=== PATIENT | male | born 1955 | race Caucasian/White ===

== ENCOUNTER 2016-10-28 10:55 | Day surgery (SDC) | payer BC ==
[~2016-10-28] VITALS: Ht 175.3 cm; Wt 136.0 kg
[~2016-10-28 10:55] MED LIST: ALLEGRA-D 24HR1 T24 PO; CIPRO 500MG TA500 MG PO; GLUCOPHAGE1000 MG PO; LEVAQUIN 5500 MG/TA1 PO; MASON NATURAL1200 MG PO; MEVACOR 20M20 MG/TAB PO; MUCINEX DM 30 M1 TE1; OMEGA-31 SGL PO; ONE DAILY1 TA1 PO; ONE-A-DAY MEN'S1 TAB PO; ZESTRIL 20MG TA20 MG PO
[2016-10-28 12:04] VITALS: BP 148/79; PULSE 79; TEMP 98
[2016-10-28] MEDS ORDERED: FLOMAX 0.40.4 MG/CAP PO (12:28)
[2016-10-28 14:13] VITALS: TEMP 97.2
[2016-10-28 14:25] VITALS: BP 122/75; PULSE 59
[2016-10-28 14:40] VITALS: BP 105/61; PULSE 56
[2016-10-28] MEDS ORDERED: NORCO 325 MG-51 TAB PO (14:54)
[2016-10-28 14:55] VITALS: BP 115/58; PULSE 70
[2016-10-28] MEDS ORDERED: SENOKOT S 50 MG1 TAB PO (14:55)
[2016-10-28] MEDS ORDERED: CIPRO 500MG TA500 MG PO (14:56)
[2016-10-28 15:00] VITALS: BP 109/69; PULSE 63
== END 2016-10-28 15:15 | disposition home or self-care (01) ==
LOC: SDCO 10:55
DX: N32.0 Bladder-neck obstruction (principal); E11.9 Type 2 diabetes mellitus without complications; E78.5 Hyperlipidemia, unspecified; I10 Essential (primary) hypertension; Z86.14 Personal history of Methicillin resistant Staphylococcus aureus infection; Z87.440 Personal history of urinary (tract) infections; Z79.84 Long term (current) use of oral hypoglycemic drugs; Z79.899 Other long term (current) drug therapy; Z87.891 Personal history of nicotine dependence; E66.01 Morbid (severe) obesity due to excess calories
CPT/HCPCS: C1769; J0690; J1885; J2405; J2704; J3010; J3301; J7030